=== PATIENT | female | born 1970 | race Two or more races ===

== ENCOUNTER 2018-07-19 19:20 | Emergency (ER) | payer MEDICAID ==
[~2018-07-19] VITALS: Ht 157.5 cm; Wt 61.7 kg
[2018-07-19 19:12] VITALS: BP 135/84
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
[2018-07-19 21:09] VITALS: BP 122/85
[2018-07-19] MEDS ORDERED: NAPROXEN500 M2 ORAL (21:09)
[2018-07-19 22:10] VITALS: BP 129/81
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
== END 2018-07-19 22:10 | disposition home or self-care (01) ==
LOC: EDBD 19:20 → EMR 19:50
DX: S20.212A Contusion of left front wall of thorax, initial encounter (principal); S33.5XXA Sprain of ligaments of lumbar spine, initial encounter; S13.4XXA Sprain of ligaments of cervical spine, initial encounter; S20.211A Contusion of right front wall of thorax, initial encounter; V43.62XA Car passenger injured in collision with other type car in traffic accident, initial encounter; Y92.488 Other paved roadways as the place of occurrence of the external cause
CPT/HCPCS: 72125; 72131; 99284